=== PATIENT | female | born 1940 | race Caucasian/White ===

== ENCOUNTER 2017-09-25 12:34 | Inpatient (IN) | payer MEDICARE ==
[~2017-09-25] VITALS: Ht 162.6 cm; Wt 66.0 kg
[2017-09-25 13:01] LABS: BASOPHILS # (AUTO) 0.1 X10'3 (0-0.2); BASOPHILS % (AUTO) 0.8 % (0-1); EOSINOPHILS # (AUTO) 0.3 X10'3 (0-0.9); EOSINOPHILS % (AUTO) 3.3 % (0-6); HEMATOCRIT 47.1 % (35.0-45.0); HEMOGLOBIN 15.9 g/dl (12.0-16.0); LYMPHOCYTES # (AUTO) 1.6 X10'3 (1.1-4.8); LYMPHOCYTES % (AUTO) 17.7 % (21-51); MEAN CORPUSCULAR HEMOGLOBIN 31.2 PG (27.0-31.0); MEAN CORPUSCULAR HGB CONC 33.8 % (33.0-36.5); MEAN CORPUSCULAR VOLUME 92.4 FL (78-98); MEAN PLATELET VOLUME 8.2 FL (7.4-10.4); MONOCYTES # (AUTO) 0.6 X10'3 (0-0.9); MONOCYTES % (AUTO) 6.8 % (2-12); NEUTROPHILS # (AUTO) 6.4 X10'3 (1.8-7.7); NEUTROPHILS % (AUTO) 71.4 % (42-75); PLATELET COUNT 300 X10'3 (140-440)
[2017-09-25 13:15] LABS: ALANINE AMINOTRANSFERASE 26 U/L (12-78); ALBUMIN 4.5 G/DL (3.4-5.0); ALKALINE PHOSPHATASE 111 IU/L (46-116); ANION GAP 8 (8-16); BILIRUBIN,TOTAL 0.9 MG/DL (0.1-1.0); BLOOD UREA NITROGEN 10 MG/DL (7-18); BUN/CREATININE RATIO 14.3 (6.6-38.0); CALCIUM 9.7 MG/DL (8.5-10.1); CHLORIDE 104 MMOL/L (99-107); GLUCOSE 95 MG/DL (70-104); SODIUM 140 MMOL/L (135-145); TOTAL CARBON DIOXIDE 28.2 MMOL/L (24-32); TOTAL PROTEIN 8.8 G/DL (6.4-8.2); eGFR 81 ML/MIN
[2017-09-25 13:21] LABS: ASPARTATE AMINO TRANSFERASE 30 U/L (10-37); POTASSIUM 4.7 MMOL/L (3.5-5.1)
[2017-09-25 13:33] LABS: PARTIAL THROMBOPLASTIN TIME 26 SECONDS (22-32); PROTHROMBIN TIME 10.4 SECONDS (9.0-12.0)
[2017-09-25] MEDS ORDERED: aspirin 81mg tab.chew PO ONE (14:25)
[2017-09-25] MEDS ORDERED: metoprolol tartrate 25mg tablet PO ONE (14:25)
[2017-09-25] MEDS ORDERED: LISI10TA4 PO (14:25)
[2017-09-25] MEDS ORDERED: FIORINAL PO (14:28)
[2017-09-25] MEDS ORDERED: butalbital/aspirin/caffeine (Fiorinal) 50/325/40mg capsule PO PRN (15:45)
[2017-09-25] MEDS ORDERED: pneumococcal 23-VAL P-sac vacc 25 mcg/0.5ml vial IMVAC ONE (16:00)
[2017-09-25] MEDS ORDERED: butalbital/acetaminophen/caffeine (Fioricet) tablet PO PRN (16:34)
[2017-09-25 16:50] VITALS: BP 180/100
[2017-09-25] MEDS ORDERED: cloNIDine 0.1 mg tablet PO PRN (17:10)
[2017-09-25 19:00] VITALS: BP 143/76
[2017-09-25] MEDS: carVEDilol 3.125mg tablet PO SCH (19:53)
[2017-09-25] MEDS: enoxaparin 40mg/0.4ml syringe SUBCUT SCH ×2 (21:43→21:44)
[2017-09-25 23:00] VITALS: BP 117/70
[2017-09-26] MEDS ORDERED: normal saline 500ml IV soln 500 ML IV ONE (01:00)
[2017-09-26 03:00] VITALS: BP 111/58
[2017-09-26 07:00] VITALS: BP 111/64
[2017-09-26] MEDS ORDERED: lisinopril 10 MG tablet PO SCH (08:00)
[2017-09-26] MEDS: carVEDilol 3.125mg tablet PO SCH ×2 (08:00→20:19)
[2017-09-26] MEDS ORDERED: pneumococcal 23-VAL P-sac vacc 25 mcg/0.5ml vial IMVAC ONE (08:00)
[2017-09-26] MEDS: pantoprazole 40 MG vial IV SCH (08:01)
[2017-09-26 11:00] VITALS: BP 117/65
[2017-09-26 11:58] LABS: CHOL/HDL RATIO 4.4 (0.00-4.99); CHOLESTEROL 233 MG/DL (0-200); HDL CHOLESTEROL 53 MG/DL (35-60); LDL CHOLESTEROL 169 MG/DL (50-100); TRIGLYCERIDES 84 MG/DL (20-135)
[2017-09-26 15:00] VITALS: BP 124/71
[2017-09-26 19:00] VITALS: BP 149/74
[2017-09-26] MEDS ORDERED: nitroGLYCERIN 0.4mg SUBLingual tab SL PRN (21:10)
[2017-09-26] MEDS ORDERED: aminophylline 250mg/10ml inj. IV PRN (21:10)
[2017-09-26] MEDS ORDERED: metoprolol tartrate 1mg/ml inj IV PRN (21:10)
[2017-09-26] MEDS ORDERED: regadenoson 0.4mg/5ml syringe IV PRN (21:10)
[2017-09-26 23:00] VITALS: BP 150/80
[2017-09-27 03:00] VITALS: BP 121/69
[2017-09-27 07:00] VITALS: BP 111/65
[2017-09-27] MEDS: enoxaparin 40mg/0.4ml syringe SUBCUT SCH (08:00)
[2017-09-27] MEDS: pantoprazole 40 MG vial IV SCH (08:00)
[2017-09-27] MEDS: metoprolol tartrate 50mg tablet PO SCH ×2 (08:10→20:21)
[2017-09-27] MEDS: lisinopril 20mg tablet PO SCH (08:10)
[2017-09-27 11:00] VITALS: BP 135/73
[2017-09-27] MEDS ORDERED: metoprolol tartrate 1mg/ml inj IV PRN (13:20)
[2017-09-27] MEDS ORDERED: regadenoson 0.4mg/5ml syringe IV ONE (13:20)
[2017-09-27] MEDS ORDERED: aminophylline 250mg/10ml inj. IV PRN (13:20)
[2017-09-27] MEDS ORDERED: nitroGLYCERIN 0.4mg SUBLingual tab SL PRN (13:20)
[2017-09-27 15:00] VITALS: BP 138/74
[2017-09-27 19:00] VITALS: BP 139/80
[2017-09-27 23:00] VITALS: BP 132/75
[2017-09-28] VITALS (11 sets, daily range): BP systolic 115–153; BP diastolic 64–80
[2017-09-28] MEDS ORDERED: pantoprazole 40mg Tablet.DR PO SCH (07:30)
[2017-09-28] MEDS ORDERED: LORazepam 1 MG tablet PO ONE (07:45)
[2017-09-28] MEDS: lisinopril 20mg tablet PO SCH (07:52)
[2017-09-28] MEDS: metoprolol tartrate 50mg tablet PO SCH (07:53)
[2017-09-28] MEDS: enoxaparin 40mg/0.4ml syringe SUBCUT SCH (07:54)
[2017-09-28] MEDS ORDERED: atorvastatin 20mg tablet PO SCH (08:00)
[2017-09-28] MEDS ORDERED: aminophylline inj. 0 ML IV ONE (09:57)
[2017-09-28] MEDS ORDERED: regadenoson 0.4mg/5ml syringe IV ONE (09:57)
[2017-09-28] MEDS ORDERED: METO50TA16 PO (17:34)
[2017-09-28] MEDS ORDERED: LISI-600 PO (17:34)
== END 2017-09-28 18:18 | disposition home or self-care (01) | DRG 305 ==
LOC: ER 12:35 → ED HOLD 15:32 → PCU 3S 16:50
PROVIDERS: ADMIT Internal Medicine; ATTEND Internal Medicine
PROC: 4A02XM4 Measurement of Cardiac Total Activity, External Approach (ICD-10-PCS; principal; 2017-09-28)
PROC: 3E073KZ Introduction of Other Diagnostic Substance into Coronary Artery, Percutaneous Approach (ICD-10-PCS; 2017-09-28)
DX: I16.0 Hypertensive urgency (principal); E78.00 Pure hypercholesterolemia, unspecified; I10 Essential (primary) hypertension; I25.10 Atherosclerotic heart disease of native coronary artery without angina pectoris; Z88.6 Allergy status to analgesic agent; Z79.899 Other long term (current) drug therapy; Z79.01 Long term (current) use of anticoagulants; Z79.82 Long term (current) use of aspirin; Z82.49 Family history of ischemic heart disease and other diseases of the circulatory system
CPT/HCPCS: 36415; 71045; 78452; 80053; 80061; 82948; 84484; 85025; 85610; 85730; 87070; 90732; 93005; 93017; 93306; 93978; 97110; 97116; 97161; 99285; A9500; C9113; J0280; J1650; J7030